=== PATIENT | female | born 2000 | race Caucasian/White ===

== ENCOUNTER 2022-07-06 19:36 | Emergency (ER) | payer OTHER, SELFPAY ==
[2022-07-06 19:56] VITALS: BP 139/74; PULSE 93; RESP 16; TEMP 36.2; O2SAT 100
--- NOTE | 2022-07-06 20:28 | ED.URI ---
HPI - URI/Sore Throat General Chief Complaint: Upper Respiratory Infection Stated Complaint: cold symptoms Source: patient, RN notes reviewed and old records reviewed Mode of arrival: ambulatory Limitations: no limitations Related Data Home Medications Medication Instructions Recorded Confirmed norethindrone 1 mg-ethinyl 1 tablet PO DAILY 07/06/22 07/06/22 estradiol 20 mcg (21)-iron 75 mg (7) tablet (Mica Fe 06/25 ()) spironolactone 50 mg tablet 5 mg PO DAILY 07/06/22 07/06/22 Allergies Allergy/AdvReac Type Severity Reaction Status Date / Time No Known Allergies Allergy Verified 07/06/22 20:02 Course Vital Signs Vital signs: Vital Signs Temperature 36.2 C L 07/06/22 19:56 Pulse Rate 93 07/06/22 19:56 Respiratory Rate 16 07/06/22 19:56 Blood Pressure 139/74 07/06/22 19:56 Pulse Oximetry 100 07/06/22 19:56 Oxygen Delivery Room Air 07/06/22 19:56 Temperature 36.2 C L 07/06/22 19:56 Pulse Rate 93 07/06/22 19:56 Respiratory Rate 16 07/06/22 19:56 Blood Pressure 139/74 07/06/22 19:56 Pulse Oximetry 100 07/06/22 19:56 Oxygen Delivery Room Air 07/06/22 19:56 Discharge Plan Discharge Prescriptions: No Action norethindrone-e.estradiol-iron [Mica Fe 06/25 ()] 1 mg-20 mcg (21)/75 mg (7) tablet 1 tablet PO DAILY spironolactone 50 mg tablet 5 mg PO DAILY Follow-up/Referrals: Karlo,Casimiro Clayton MD [Primary Care Provider] -
--- NOTE | 2022-07-06 20:36 | ED.URI ---
HPI - URI/Sore Throat General Chief Complaint: Upper Respiratory Infection Stated Complaint: cold symptoms Time Seen by Provider: 07/06/22 20:15 Source: patient, RN notes reviewed and old records reviewed Mode of arrival: ambulatory Limitations: no limitations History of Present Illness HPI Narrative: 21-year-old female who presents to [facility] with complaints of cough and cold symptoms since June 11 on and off, she presents this evening with complaints of 2 day history of increased cough, itchy throat, sinus congestion and pain. Patient has been taking DayQuil and NyQuil OTC medications and also took Bronchaid for her symptoms without resolution.Patient denies any recent fevers, reports that phlegm and sinus drainage thick yellow. MD elicited complaint: cough and sore throat Pain scale (0-10): 3 Able to tolerate fluids by mouth: Yes Treatments prior to arrival: cold medicine and other (Bronchaid) Related Data Home Medications Medication Instructions Recorded Confirmed norethindrone 1 mg-ethinyl 1 tablet PO DAILY 07/06/22 07/06/22 estradiol 20 mcg (21)-iron 75 mg (7) tablet (Mica Fe 06/25 (28)) spironolactone 50 mg tablet 5 mg PO DAILY 07/06/22 07/06/22 Allergies Allergy/AdvReac Type Severity Reaction Status Date / Time No Known Allergies Allergy Verified 07/06/22 20:02 Review of Systems Review of Systems: CONSTITUTIONAL: Denies malaise, chills, sweats, or fever. EYES: Denies visual changes, redness, or discharge. ENT: Reports rhinorrhea, congestion, sinus pain, no otalgia positive for sore throat. CARDIOVASCULAR: Denies chest pain, palpitations, or edema. RESPIRATORY: Reports persistent cough.? Denies dyspnea. GASTROINTESTINAL: Denies abdominal pain, nausea, vomiting, diarrhea SKIN: Denies rash or itching. MUSCULOSKELETAL: Denies myalgia. NEUROLOGIC: Denies headache. All systems reviewed & are unremarkable except as noted in HPI and below PMFSH Past Medical History Medical History (Updated 07/07/22 @ 12:14 by Thea Montes NP) Acne Surgical History Surgical History (Updated 07/06/22 @ 20:48 by Thea Montes NP) History of tonsillectomy Social History Social History (Updated 01/31/23 @ 20:48 by BLAKE Paul Smoking status: Never smoker Alcohol intake: current Alcohol use details: social Substance use type: does not use Gender identity (if verbalized by the patient): Female Comments At time of signature, agree with nursing past medical, surgical, social and family history. There is no relevant family history pertinent to the presenting complaint Exam Narrative: GENERAL: Well-appearing, well-nourished, and in no acute distress. HEAD: Normocephalic EYES: PERRLA, conjunctivae clear ENT: Nares clear, turbinates edematous and erythematous, clear yellow tinged discharge. Mucous membranes moist. TM pearly castellano with dull light reflex bilaterally; no tragal tenderness. Oropharynx erythematous without lesions. Tonsils not present, throat is swollen and without exudate, no drooling, no hoarseness, no trismus, uvula midline.post nasal drainage present NECK: Supple. No lymphadenopathy CHEST: Clear to auscultation, breath sounds equal. No wheezing, rhonchi, rales, or stridor. No respiratory distress, speaks in full sentences. SAO2 100% on room air, loose cough noted. HEART: Regular rate and rhythm. No murmur heard. SKIN: Warm, dry, no rash. NEURO: Alert and oriented x3. PSYCH: Normal mood and affect Course Course Emergency Course: Patient is aware of diagnosis, understands and agrees to treatment plan.? Anticipatory guidance given.? Patient agrees to follow-up as directed and is aware of reasons to seek care at the emergency department. Portions of this record may have been created with voice recognition software Level of Care: Express Care Visit Vital Signs Vital signs: Vital Signs Temperature 36.2 C L 07/06/22 19:56 Pu
== END 2022-07-06 20:44 | disposition home or self-care (01) ==
PROVIDERS: Emergency Provider Registered Nurse; PCP Emergency Medicine
DX: J32.9 Chronic sinusitis, unspecified (principal)
CPT/HCPCS: 99203; G0463

== ENCOUNTER 2022-10-21 15:53 | Emergency (ER) | payer OTHER, SELFPAY ==
--- NOTE | 2022-10-21 15:58 | ED.URI ---
HPI - URI/Sore Throat General Chief Complaint: Upper Respiratory Infection Stated Complaint: sore throat Time Seen by Provider: 10/21/22 16:43 Source: patient and RN notes reviewed Mode of arrival: ambulatory Limitations: no limitations History of Present Illness HPI Narrative: 22-year-old female presents with concern for sore throat, headache, body aches, chills. Reports symptoms started on Tuesday. Reports most symptoms have resolved, except she still has a sore throat. She denies known sick contacts. She reports she took a cold medicine that helped MD elicited complaint: sore throat Related Data Home Medications Medication Instructions Recorded Confirmed norethindrone 1 mg-ethinyl 1 tablet PO DAILY 07/06/22 10/21/22 estradiol 20 mcg (21)-iron 75 mg (7) tablet (Mica Fe 06/25 (28)) spironolactone 50 mg tablet 5 mg PO DAILY 07/06/22 10/21/22 Allergies Allergy/AdvReac Type Severity Reaction Status Date / Time No Known Allergies Allergy Verified 10/21/22 16:31 Review of Systems Review of Systems: CONSTITUTIONAL: Denies malaise, chills, sweats. Reports fever. EYES: Denies visual changes, redness, or discharge. ENT: Reports rhinorrhea, congestion, sinus pain, otalgia. Reports sore throat. CARDIOVASCULAR: Denies chest pain, palpitations, or edema. RESPIRATORY: Denies cough. Denies dyspnea. GASTROINTESTINAL: Denies abdominal pain, nausea, vomiting, diarrhea SKIN: Denies rash or itching. MUSCULOSKELETAL: Denies myalgia. NEUROLOGIC: Reports headache. All systems reviewed & are unremarkable except as noted in HPI and below PMFSH Past Medical History Medical History (Updated 10/21/22 @ 16:54 by Analia Donald NP) Acne Surgical History Surgical History (Updated 07/06/22 @ 20:48 by Thea Montes NP) History of tonsillectomy Social History Social History (Updated 07/06/22 @ 20:48 by Thea Montes NP) Smoking status: Never smoker Alcohol intake: current Alcohol use details: social Substance use type: does not use Gender identity (if verbalized by the patient): Female Comments At time of signature, agree with nursing past medical, surgical, social and family history. There is no relevant family history pertinent to the presenting complaint Exam Narrative: GENERAL: Well-appearing, well-nourished, and in no acute distress. HEAD: Normocephalic EYES: PERRLA, conjunctivae clear ENT: Nares clear, turbinates edematous and erythematous, clear discharge. Mucous membranes moist. TM pearly castellano with sharp light reflex bilaterally; no tragal tenderness. Oropharynx not erythematous without lesions. Tonsils not enlarged and without exudate, no drooling, no hoarseness, no trismus, uvula midline. NECK: Supple. No lymphadenopathy CHEST: Clear to auscultation, breath sounds equal. No wheezing, rhonchi, rales, or stridor. No respiratory distress, speaks in full sentences. HEART: Regular rate and rhythm. No murmur heard. SKIN: Warm, dry, no rash. NEURO: Alert and oriented x3. PSYCH: Normal mood and affect Course Course Emergency Course: Patient is aware of diagnosis, understands and agrees to treatment plan. Anticipatory guidance given. Patient agrees to follow-up as directed and is aware of reasons to seek care at the emergency department. Portions of this record may have been created with voice recognition software Level of Care: Express Care Visit Vital Signs Vital signs: Vital Signs Temperature 97.4 F L 10/21/22 16:03 Pulse Rate 93 10/21/22 16:03 Respiratory Rate 18 10/21/22 16:03 Blood Pressure 126/76 10/21/22 16:03 Pulse Oximetry 100 10/21/22 16:03 Oxygen Delivery Room Air 10/21/22 16:03 Temperature 97.4 F L 10/21/22 16:03 Pulse Rate 93 10/21/22 16:03 Respiratory Rate 18 10/21/22 16:03 Blood Pressure 126/76 10/21/22 16:03 Pulse Oximetry 100 10/21/22 16:03 Oxygen Delivery Room Air 10/21/22 16:03 Reviewed. MDM - URI/Kailey
[2022-10-21 16:03] VITALS: BP 126/76; PULSE 93; RESP 18; TEMP 36.3; O2SAT 100
== END 2022-10-21 17:00 | disposition home or self-care (01) ==
PROVIDERS: Emergency Provider Nurse Practitioner; PCP Emergency Medicine
DX: J02.9 Acute pharyngitis, unspecified (principal)
CPT/HCPCS: 87081; 87880; 99213; G0463